=== PATIENT | female | born 1980 | race Caucasian/White ===

== ENCOUNTER 2023-12-28 23:03 | Emergency (ER) | payer SELFPAY ==
[~2023-12-28] VITALS: Ht 152.4 cm; Wt 98.0 kg
[2023-12-28 23:07] VITALS: O2SAT 99
[2023-12-28 23:38] VITALS: TEMP 98.1
[2023-12-28] MEDS: ACETAMINOPHEN 325MG TABLET PO STA (23:38)
[2023-12-29 00:04] LABS: BASOPHILS % 0.8 % (0.0-2.0); EOSINOPHILS % 2.1 % (0.0-5.0); HEMATOCRIT. 41.7 % (36.0-48.0); HEMOGLOBIN. 13.9 g/dL (12.0-16.0); LYMPHOCYTES % 42.3 % (20.0-50.0); MEAN CORPUSCULAR HGB CONC 33.4 g/dL (31.0-37.0); MEAN CORPUSCULAR VOLUME 83.8 fL (81.0-99.0); MEAN PLATELET VOLUME 9.5 fl (7.4-10.4); MONOCYTES % 7.9 % (2.0-8.0); NEUTROPHILS % 46.9 % (40.0-76.0); PLATELET 291 x1000/uL (130-400); RED BLOOD CELL COUNT 4.97 mill/uL (4.2-5.4); RED CELL DISTRIBUTION WIDTH 15.1 % (11.6-14.6)
[2023-12-29 00:24] LABS: ALANINE AMINOTRANSFERASE 171 IU/L (10-49); ALBUMIN 4.2 g/dL (3.2-4.8); ASPARTATE AMINOTRANSFERASE 117 IU/L (<34); BILIRUBIN TOTAL 0.3 mg/dL (0.1-1.0); CALCIUM 9.4 mg/dL (8.7-10.4); CARBON DIOXIDE 25 mEq/L (21-32); CHLORIDE 99 mEq/L (98-107); CREATININE 0.6 mg/dL (0.6-1.0); GLUCOSE 274 mg/dL (70-105); POTASSIUM 3.8 mEq/L (3.5-5.1); PROTEIN TOTAL 7.5 g/dL (6.0-8.3); SODIUM 133 mEq/L (136-145); UREA NITROGEN BLOOD 14 mg/dL (9-23)
[2023-12-29 00:25] LABS: TROPONIN I HIGH SENSITIVITY < 4 ng/L (3.0-34)
[2023-12-29 00:30] LABS: HCG SCREEN NEGATIVE
[2023-12-29] MEDS: SODIUM CHLORIDE 0.9% 1,000 ML IV ONE (00:38)
[2023-12-29] MEDS ORDERED: MECL-299 MT (02:37)
[2023-12-29] MEDS ORDERED: IBUP-2028 MT (02:37)
[2023-12-29 03:09] VITALS: BP 129/79; PULSE 87; RESP 16
[2023-12-29 03:09] LABS: CLARITY URINE CLEAR (CLEAR); COLOR URINE YELLOW (YELLOW); GLUCOSE URINE 2+ (NEGATIVE); KETONES URINE NEGATIVE (NEGATIVE); LEUKOCYTE ESTERASE URINE NEGATIVE (NEGATIVE); NITRITE URINE NEGATIVE (NEGATIVE); OCCULT BLOOD URINE TRACE (NEGATIVE); PH URINE 5.5 (4.5-8.0); PROTEIN URINE 1+ (NEGATIVE); SPECIFIC GRAVITY URINE 1.013 (1.005-1.030); UROBILINOGEN URINE 0.2 E.U./dL (0.2-1.0)
[2023-12-29 03:40] LABS: BACTERIA URINE NONE SEEN; RBC URINE NONE SEEN /hpf (0-2); SQUAMOUS EPITHELIAL CELL URINE NONE SEEN /lpf (RARE/1+); WBC URINE NONE SEEN /hpf (0-2)
== END 2023-12-29 03:21 | disposition home or self-care (01) ==
LOC: ER 23:03
DX: S09.90XA Unspecified injury of head, initial encounter (principal); R55 Syncope and collapse; E11.65 Type 2 diabetes mellitus with hyperglycemia; I10 Essential (primary) hypertension; W18.39XA Other fall on same level, initial encounter; Y93.89 Activity, other specified; Y92.89 Other specified places as the place of occurrence of the external cause; Y99.8 Other external cause status
CPT/HCPCS: 99285; 71045; 80053; 82962; 84703; 85025; 84484; 36415; 72170; 73030; 73090; 93005; 96360; 70450; 81003; J7030